=== PATIENT | male | born 1975 | race Caucasian/White ===

== ENCOUNTER 2016-09-03 13:48 | Emergency (ER) | payer SELFPAY ==
[~2016-09-03] VITALS: Ht 182.9 cm; Wt 100.0 kg
[2016-09-03 13:50] VITALS: BP 137/94; PULSE 112; TEMP 97.4; O2SAT 97
--- NOTE | 2016-09-03 13:53 | PD ---
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 VVS WAITING FOR BED PLACEMENT MDM Medical Record Reviewed: Yes Supervised Visit with LOUIS: Gus Underwood September 03, 2016 13:53
--- NOTE | 2016-09-03 14:56 | PD ---
HPI Chief Complaint: Medical Clearance Time Seen by Provider: 14:53 Travel History International Travel<30 days: No Contact w/Intl Traveler<30days: No Traveled to known affect area: No History of Present Illness HPI Patient comes in for evaluation after having increasing falling asleep and nodding off in the afternoons while at work and almost falling asleep while driving. Patient states he's been told in the past that he "snores horribly at night". Patient reports frequent waking at night. Patient denies ever being evaluated for this. Patient denies any chest pain, shortness of breath, fevers , syncope, lightheadedness, dizziness, recent travel, edema, abdominal pain, loss or change in bowel or bladder, headaches, or numbness or tingling anywhere. Patient denies doing anything for this. PFS Past Medical History Medical History: Denies Significant Hx Social History Alcohol Use: Yes Tobacco Use: Yes Substance Use: No Review of Systems Except as stated in HPI: all other systems reviewed are Neg Physical Exam Narrative GENERAL: Well-developed, overly nourished, in no acute distress, and non-ill appearing. SKIN: Focused skin assessment warm and dry. HEAD: Atraumatic. Normocephalic. EYES: Pupils equal and round. EOMI. No scleral icterus. No injection or drainage. ENT: No nasal bleeding or discharge. Mucous membranes pink and moist. NECK: Trachea midline. Supple. No nuclear rigidity. CARDIOVASCULAR: Regular rate and rhythm. No murmur appreciated. RESPIRATORY: No accessory muscle use. No respiratory distress. Clear to auscultation. Breath sounds equal bilaterally. MUSCULOSKELETAL: No obvious deformities. No clubbing. No cyanosis. No edema. Full range of motion. NEUROLOGICAL: Awake and alert. No obvious cranial nerve deficits. Motor grossly within normal limits. Normal speech. PSYCHIATRIC: Appropriate mood and affect; insight and judgment normal. Data Data Last Documented VS Vital Signs Date Time Temp Pulse Resp B/P Pulse Ox O2 Delivery O2 Flow Rate FiO2 09/03/16 13:50 97.4 112 137/94 97 Orders Electrocardiogram (09/03/16 14:48) Basic Metabolic Panel (Bmp) (09/03/16 14:48) Complete Blood Count With Diff (09/03/16 14:48) Chest, Single Ap (09/03/16 14:48) Ecg Monitoring (09/03/16 14:48) Iv Access Insert/Monitor (09/03/16 14:48) Oxygen Administration (09/03/16 14:48) Ct Brain W/O Iv Contrast(Rout) (09/03/16 ) Labs Laboratory Tests Test 09/03/16 15:05 White Blood Count 10.2 TH/MM3 Red Blood Count 5.60 MIL/MM3 Hemoglobin 17.0 GM/DL Hematocrit 50.5 % Mean Corpuscular Volume 90.3 FL Mean Corpuscular Hemoglobin 30.4 PG Mean Corpuscular Hemoglobin 33.7 % Concent Red Cell Distribution Width 13.8 % Platelet Count 251 TH/MM3 Mean Platelet Volume 10.2 FL Neutrophils (%) (Auto) 60.2 % Lymphocytes (%) (Auto) 26.8 % Monocytes (%) (Auto) 8.0 % Eosinophils (%) (Auto) 4.0 % Basophils (%) (Auto) 1.0 % Neutrophils # (Auto) 6.1 TH/MM3 Lymphocytes # (Auto) 2.7 TH/MM3 Monocytes # (Auto) 0.8 TH/MM3 Eosinophils # (Auto) 0.4 TH/MM3 Basophils # (Auto) 0.1 TH/MM3 CBC Comment DIFF FINAL Differential Comment Sodium Level 138 MEQ/L Potassium Level 4.2 MEQ/L Chloride Level 106 MEQ/L Carbon Dioxide Level 25.1 MEQ/L Anion Gap 7 MEQ/L Blood Urea Nitrogen 10 MG/DL Creatinine 1.23 MG/DL Estimat Glomerular Filtration 65 ML/MIN Rate Random Glucose 141 MG/DL Calcium Level 8.4 MG/DL MDM Medical Decision Making Medical Screen Exam Complete: Yes Emergency Medical Condition: Yes Interpretation(s) CT head read by radiologist shows: No evidence of acute intracranial pathology. No masses are identified. EKG reviewed by Dr. Jerome shows sinus rhythm with ventricular rate of 86. No STEMI. Chest x-ray read by the radiologist shows: No acute disease. Differential Diagnosis Anemia, electrolyte abnormality, arrhythmia, mass, sleep apnea, other Narrative Course 4272 patient is reassessed. Patient found sleeping in bed snoring with occasionally short spurts of apnea. Patient in no obvious distress upon re-evaluation. All pertinent laboratory/ Radiology result(s) discussed with patient/family. Discussed patient with symptoms are most consistent with sleep apnea strongly encourage outpatient follow-up for further treatment and evaluation. Patient was advised to not drive if he is falling asleep behind the wheel. Discussed patient with Dr. Jerome prior to discharge, who is in agreement with plan of care and disposition. Any questions/concerns in reference to patient diagnosis/ condition discussed and clarified prior to patient's discharge. Reinforced sheer importance of close follow up with patient's primary physician or primary care clinic. Instructed patient to return to ED immediately, if symptoms return/ worsen. Pt showed understanding of above instructions. Further instructions and recommendations were detailed in discharge paperwork. Pt ambulated without difficulty out of ED at discharge. Diagnosis Primary Impression: Fatigue due to sleep pattern disturbance Referrals: Jason Cortez MD [facility] Patient Instructions: General Instructions, Sleep Apnea (GEN) Additional Instructions: Follow-up with your primary care physician for further treatment and evaluation and sleep study test for suspected sleep apnea. Do not drive if you are if falling asleep behind the wheel to prevent serious injury and/or to yourself and others until symptoms are controlled. Return to the emergency department if symptoms get worse. Disposition: 01 DISCHARGE HOME Condition: Stable Ross Johansen September 03, 2016 14:56
[2016-09-03 15:14] LABS: AUTOMATED NEUTROPHIL # 6.1 TH/MM3 (1.8-7.7); BASOPHIL # 0.1 TH/MM3 (0-0.2); EOSINOPHIL # 0.4 TH/MM3 (0-0.4); HEMATOCRIT 50.5 % (39.0-51.0); HEMO FLAGS DIFF FINAL; LYMPH % 26.8 % (9.0-44.0); LYMPHOCYTE # 2.7 TH/MM3 (1.0-4.8); MEAN CELL VOLUME 90.3 FL (80.0-100.0); MEAN CORPUSCULAR HEMOGLOBIN 30.4 PG (27.0-34.0); MEAN CORPUSCULAR HGB CONC 33.7 % (32.0-36.0); NEUT % 60.2 % (16.0-70.0); PLATELET COUNT 251 TH/MM3 (150-450); RED CELL DISTRIBUTION WIDTH 13.8 % (11.6-17.2); WHITE BLOOD COUNT 10.2 TH/MM3 (4.0-11.0)
--- NOTE | 2016-09-03 15:40 | RADRPT ---
EXAM DATE/TIME: 09/03/2016 15:20 [facility] COMPARISON: No previous studies available for comparison. INDICATIONS : Patients states hes been falling asleep at work for a month. RADIATION DOSE: 47.29 CTDIvol (mGy) MEDICAL HISTORY : None SURGICAL HISTORY : None. ENCOUNTER: Initial ACUITY: 1 month PAIN SCALE: 0/10 LOCATION: no pain TECHNIQUE: Multiple contiguous axial images were obtained of the head. Using automated exposure control and adj ustment of the mA and/or kV according to patient size, radiation dose was kept as low as reasonably a chievable to obtain optimal diagnostic quality images. FINDINGS: CEREBRUM: The ventricles are normal for age. No evidence of midline shift, mass lesion, hemorrhage or acute in farction. No extra-axial fluid collections are seen. POSTERIOR FOSSA: The cerebellum and brainstem are intact. The 4th ventricle is midline. The cerebellopontine angle i s unremarkable. EXTRACRANIAL: The visualized portion of the orbits is intact. SKULL: The calvaria is intact. No evidence of skull fracture. CONCLUSION: 1. No evidence of acute intracranial pathology. No masses are identified. Minh Moulton MD on September 03, 2016 at 15:37 Board Certified Radiologist. This report was verified electronically.
--- NOTE | 2016-09-03 15:45 | RADRPT ---
EXAM DATE/TIME: 09/03/2016 14:58 [facility] COMPARISON: No previous studies available for comparison. INDICATIONS : Weakness, faling asleep during the day. MEDICAL HISTORY : None. SURGICAL HISTORY : None. ENCOUNTER: Initial ACUITY: 1 day PAIN SCORE: 0/10 LOCATION: Bilateral chest FINDINGS: A single view of the chest demonstrates the lungs to be symmetrically aerated without evidence of mas s, infiltrate or effusion. The cardiomediastinal contours are unremarkable. Osseous structures are intact. CONCLUSION: No acute disease. Nicolas Cates MD FACR on September 03, 2016 at 15:43 Board Certified Radiologist. This report was verified electronically.
[2016-09-03 15:55] LABS: BICARBONATE 25.1 MEQ/L (21.0-32.0)
[2016-09-03 16:00] LABS: POTASSIUM 4.2 MEQ/L (3.5-5.1)
--- NOTE | 2016-09-04 15:45 | EKG ---
Date Performed: 09/03/2016 Time Performed: 15:29:29 PTAGE: 41 years EKG: Sinus rhythm POSSIBLE LEFT ATRIAL ENLARGEMENT BORDERLINE ECG NO PREVIOUS TRACING DOCTOR: Adri Benson Interpretating Date/Time 09/04/2016 15:44:31
== END 2016-09-03 16:36 | disposition home or self-care (01) ==
LOC: NEPD 13:48
DX: G47.9 Sleep disorder, unspecified (principal); R53.83 Other fatigue
CPT/HCPCS: 70450; 71010; 80048; 85025; 93005